=== PATIENT | female | born 1980 | race Caucasian/White ===

== ENCOUNTER → 2016-12-03 | Outpatient (CLI) | payer OTHER ==
[~2016-12-03] VITALS: Ht 165.1 cm; Wt 161.5 kg
[~2016-12-03] MED LIST: ADVAIR 250/501 DISK IH; BIOTIN 5000MCG PO; GLUCOPHAGE1000 MG PO; JARDIANCE25 MG PO; KRILL OIL500 MG PO; LIPITOR10 MG PO; MULTIPLE VITAM1 EAC4 PO; OMEPRAZOLE40 M1 PO; SINGULAIR10 MG PO; SPIRIVA1 INHALATI IH; VENTOLIN HFA18 GM IH; VICTOZA0.6 MG/0.1 SC; ZESTRIL10 MG PO; ZOLOFT25 MG PO
[2016-12-03 12:59] LABS: POINT-OF-CARE METER ID UU13113694
[2016-12-03 13:31] LABS: INTERNAL CONTROL VALID? YES
== END | disposition home or self-care (01) ==
LOC: AMB 11:30
PROVIDERS: Surgery
PROC: 0DJ08ZZ Inspection of Upper Intestinal Tract, Via Natural or Artificial Opening Endoscopic (ICD-10-PCS; principal; 2016-12-03)
DX: K31.7 Polyp of stomach and duodenum (principal); K21.9 Gastro-esophageal reflux disease without esophagitis; E11.9 Type 2 diabetes mellitus without complications; E66.01 Morbid (severe) obesity due to excess calories; Z68.43 Body mass index [BMI] 50.0-59.9, adult; I10 Essential (primary) hypertension; G47.30 Sleep apnea, unspecified; Z87.891 Personal history of nicotine dependence; Z88.8 Allergy status to other drugs, medicaments and biological substances; Z88.6 Allergy status to analgesic agent
CPT/HCPCS: 82948; 84703

== ENCOUNTER 2016-12-26 08:59 | Inpatient (IN) | payer OTHER ==
[~2016-12-26] VITALS: Ht 162.6 cm; Wt 154.2 kg
[2016-12-26 10:46] VITALS: BP 151/93
[2016-12-26 10:47] LABS: POINT-OF-CARE METER ID UU14174212
[2016-12-26 13:47] LABS: POINT-OF-CARE METER ID UU13113675
[2016-12-26 15:12] VITALS: BP 151/80
[2016-12-26 17:26] LABS: POINT-OF-CARE METER ID UU14162508
[2016-12-26 19:33] VITALS: BP 124/62
[2016-12-26 23:37] VITALS: BP 134/65
[2016-12-26 23:52] LABS: POINT-OF-CARE METER ID UU14162508
[2016-12-27 03:33] VITALS: BP 137/65
[2016-12-27 05:55] LABS: POINT-OF-CARE METER ID UU14162508
[2016-12-27 06:47] LABS: MCH 28.2 PG (29.0-34.0); MCHC 31.3 G/DL (30.0-36.0); MCV 90.1 FL (83-99); MEAN PLAT.VOLUME 9.9 uM^3 (9.5-12.4); PLATELET COUNT 386 K/uL (156-360); RBC DIS.WIDTH-CV 14.5 % (11.8-14.6); RBC DIS.WIDTH-SD 47.7 % (39-53); RED BLOOD COUNT 4.44 M/uL (3.80-5.20); WHITE BLOOD COUNT 12.1 K/uL (4.1-10.2)
[2016-12-27 06:56] VITALS: BP 140/65
[2016-12-27 07:15] LABS: ANION GAP 12 MEQ/L (2-14); CHLORIDE 103 MEQ/L (99-109); GFR ESTIMATE (CALCULATED) > 59 mL/min/; GLUCOSE 130 mg/dL (70-99); POTASSIUM 4.2 MEQ/L (3.7-5.4); SAMPLE HEMOLYSIS CHECK 0; SAMPLE ICTERIC CHECK 0; SAMPLE LIPEMIA CHECK 0; SODIUM 137 MEQ/L (136-147); UREA NITROGEN (BUN) 14 mg/dL (9-23)
[2016-12-27] MEDS ORDERED: HYDROCODON-ACE1 EAC7 PO (07:21)
== END 2016-12-27 11:00 | disposition home or self-care (01) | DRG 621 ==
LOC: 2SOUTH 08:59 → 2EAST 15:09 → 2SOUTH 15:33 → 2EAST 12-27 11:00
PROVIDERS: Surgery
PROC: 0DB64Z3 Excision of Stomach, Percutaneous Endoscopic Approach, Vertical (ICD-10-PCS; principal; 2016-12-26)
DX: E66.01 Morbid (severe) obesity due to excess calories (principal); I10 Essential (primary) hypertension; G47.30 Sleep apnea, unspecified; J45.909 Unspecified asthma, uncomplicated; K21.9 Gastro-esophageal reflux disease without esophagitis; F32.9 Major depressive disorder, single episode, unspecified; Z68.44 Body mass index [BMI] 60.0-69.9, adult
CPT/HCPCS: 80048; 82948; 83735; 84100; 85027; 94640; 94640 76; 94799; 99202; J0330; J0690; J1170; J1644; J1650; J1815; J1885; J2270; J2405; J2550; J2765; J3010; J3480; J7120; S0020